=== PATIENT | female | born 1970 | race Caucasian/White ===

== ENCOUNTER 2023-04-30 06:24 | Day surgery (SDC) | payer OTHER, SELFPAY ==
[2023-04-30 08:39] VITALS: BMI 22.8
[2023-04-30 08:45] VITALS: BP 141/97
[2023-04-30 08:50] VITALS: BMI 22.8
[2023-04-30 09:06] LABS: Glucose - Point of Care 88 mg/dl (70-99)
[2023-04-30 10:32] VITALS: BP 107/94
[2023-04-30 10:45] VITALS: BP 131/85
[2023-04-30 11:00] VITALS: BP 146/89
== END 2023-04-30 11:10 | disposition home or self-care (01) ==
LOC: GI 06:24
PROVIDERS: ATTENDING PHYSICIAN Internal Medicine Gastroenterology
DX: Z12.11 Encounter for screening for malignant neoplasm of colon (principal); D12.2 Benign neoplasm of ascending colon; K63.89 Other specified diseases of intestine; K64.0 First degree hemorrhoids; Z86.010 Personal history of colon polyps; Z98.890 Other specified postprocedural states
CPT/HCPCS: 45390; 45385; 45380; 88305; 82962

== ENCOUNTER → 2024-02-02 15:37 | Outpatient (REF) | payer OTHER, SELFPAY | LOC: WDC 15:37 | PROVIDERS: ATTENDING PHYSICIAN Student in an Organized Health Care Education/Training Program; FAMILY PHYSICIAN Internal Medicine | DX: Z12.31 Encounter for screening mammogram for malignant neoplasm of breast (principal) | CPT/HCPCS: 77063; 77067 ==

== ENCOUNTER 2024-06-07 06:13 | Day surgery (SDC) | payer OTHER, SELFPAY ==
[2024-06-07 07:13] VITALS: BMI 22.2
[2024-06-07 07:14] VITALS: BP 120/85; BMI 22.2
[2024-06-07 07:26] LABS: Glucose - Point of Care 95 mg/dl (70-99)
[2024-06-07 09:15] VITALS: BP 123/80
[2024-06-07 09:30] VITALS: BP 142/84
[2024-06-07 09:45] VITALS: BP 148/86
== END 2024-06-07 10:14 | disposition home or self-care (01) ==
LOC: SDS 06:13
PROVIDERS: ATTENDING PHYSICIAN Internal Medicine Gastroenterology
DX: Z12.11 Encounter for screening for malignant neoplasm of colon (principal); D12.3 Benign neoplasm of transverse colon; D12.5 Benign neoplasm of sigmoid colon; K63.5 Polyp of colon; K64.0 First degree hemorrhoids; T18.4XXA Foreign body in colon, initial encounter; Y83.1 Surgical operation with implant of artificial internal device as the cause of abnormal reaction of the patient, or of later complication, without mention of misadventure at the time of the procedure; Z86.0101 Personal history of adenomatous and serrated colon polyps; Z98.890 Other specified postprocedural states
CPT/HCPCS: 45385; 88305; 82962